=== PATIENT | female | born 1965 | race African-American/Black ===

== ENCOUNTER 2021-08-30 08:31 | Inpatient (IN) | payer OTHER ==
[2021-08-30 09:21] VITALS: BMI 34.0
[2021-08-30] MEDS ORDERED: diazePAM 5 MG TABLET PO PRN (10:15)
[2021-08-30] MEDS ORDERED: BENZOCAINE/MENTHOL (CHLORASEPTIC ) LOZENGE MM PRN (10:15)
[2021-08-30] MEDS ORDERED: DICYCLOMINE HCL 10 MG CAPSULE PO PRN (10:15)
[2021-08-30] MEDS ORDERED: ACETAMINOPHEN 325 MG TABLET (FP) PO PRN ×2 (10:15)
[2021-08-30] MEDS ORDERED: ONDANSETRON *ODT* 4 MG TABLET SL PRN (10:15)
[2021-08-30] MEDS ORDERED: cloNIDine HCL 0.1 MG TABLET PO PRN (10:15)
[2021-08-30] MEDS ORDERED: LOPERAMIDE HCL 2 MG CAPSULE PO PRN (10:15)
[2021-08-30] MEDS ORDERED: methaDONE HCL 10 MG TABLET (FOR DETOX USE ONLY) PO ONE (10:15)
[2021-08-30] MEDS ORDERED: METHOCARBAMOL 500 MG TABLET PO PRN (10:15)
[2021-08-30] MEDS ORDERED: MAGNESIUM CITRATE 300 ML BOTTLE PO PRN (10:15)
[2021-08-30] MEDS ORDERED: IBUPROFEN 400 MG TABLET (FP) PO PRN (10:15)
[2021-08-30] MEDS ORDERED: BISMUTH SUBSALICYLATE 524 MG/30 ML PO PRN (10:15)
[2021-08-30] MEDS ORDERED: MAG HYDROX/AL HYDROX/SIMETH 30 ML UNIT-DOSE CUP PO PRN (10:15)
[2021-08-30] MEDS ORDERED: MAGNESIUM HYDROX 2400MG/30ML ORAL SUSPENSION 30 ML CUP PO PRN (10:15)
[2021-08-30] MEDS ORDERED: cloNIDine HCL 0.1 MG TABLET PO ONE (10:25)
[2021-08-30] MEDS ORDERED: cloNIDine HCL 0.1 MG TABLET ONE (10:57)
[2021-08-30] MEDS ORDERED: methaDONE HCL 10 MG TABLET (FOR DETOX USE ONLY) ONE (10:57)
[2021-08-30] MEDS: diazePAM 5 MG TABLET PO SCH ×3 (11:54→22:36)
[2021-08-30] MEDS: hydrOXYzine PAMOATE 25 MG CAPSULE (FP) PO SCH ×3 (14:14→22:37)
[2021-08-30] MEDS: THIAMINE HCL 100 MG TABLET (FP) PO SCH (22:37)
[2021-08-30] MEDS: MELATONIN 5 MG TABLETS PO SCH (22:37)
[2021-08-31] MEDS: hydrOXYzine PAMOATE 25 MG CAPSULE (FP) PO SCH ×5 (06:17→22:23)
[2021-08-31] MEDS: diazePAM 5 MG TABLET PO SCH ×4 (06:17→22:23)
[2021-08-31] MEDS ORDERED: methaDONE HCL 10 MG TABLET (FOR DETOX USE ONLY) ONE (08:59)
[2021-08-31 09:49] LABS: HEMATOCRIT 35.4 % (32.4-45.2); HEMOGLOBIN 11.9 GM/dL (10.7-15.3); MCH 27.1 pg (25.7-33.7); MCHC 33.7 g/dl (32.0-36.0); MEAN CELL VOLUME 80.5 fl (80-96); MEAN PLT VOLUME 9.6 fl (7.5-11.1); PLATELET COUNT 204 10^3/uL (134-434); RDW 13.8 % (11.6-15.6)
[2021-08-31 09:52] LABS: EPI CELLS >36 /uL (0-25.1); HYALINE CASTS 6 /uL (0-3.1); PH,URINE 5.5 (5.0-8.0); URINE APPEARANCE CLOUDY; URINE BACTERIA 1238 /uL (0-1359); URINE BILIRUBIN NEGATIVE (NEGATIVE); URINE COLOR YELLOW; URINE GLUCOSE (UA) NEGATIVE (NEGATIVE); URINE KETONE TRACE (NEGATIVE); URINE LEUK ESTERASE 1+ (NEGATIVE); URINE NITRITE NEGATIVE (NEGATIVE); URINE PROTEIN NEGATIVE (NEGATIVE); URINE RBC 25 /uL (0-23.9); URINE WBC 122 /uL (0-25.8)
[2021-08-31 09:57] LABS: CALCIUM 8.7 mg/dL (8.5-10.1)
[2021-08-31 09:58] LABS: ALBUMIN 3.5 g/dl (3.4-5.0); BLOOD UREA NITROGEN 13.8 mg/dL (7-18)
[2021-08-31 10:01] LABS: CREATININE 0.7 mg/dL (0.55-1.3)
[2021-08-31 10:03] LABS: TOT PROT 6.6 g/dl (6.4-8.2)
[2021-08-31 10:04] LABS: BILIRUBIN,TOTAL 0.3 mg/dL (0.2-1)
[2021-08-31] MEDS: PRENATAL VITAMINS W/ FOLIC ACID TABLET (FP) PO SCH (10:11)
[2021-08-31 10:28] LABS: SICKLE CELL SCREEN NEGATIVE (NEGATIVE)
[2021-08-31 10:47] LABS: HIV INTERPRETATION NEGATIVE (NEGATIVE)
[2021-08-31] MEDS: NICOTINE 10 MG CARTRIDGE (INHALER) IH PRN (11:38)
[2021-08-31] MEDS: MELATONIN 5 MG TABLETS PO SCH (22:23)
[2021-08-31] MEDS: THIAMINE HCL 100 MG TABLET (FP) PO SCH (22:23)
[2021-09-01] MEDS: diazePAM 5 MG TABLET PO SCH ×3 (06:09→22:29)
[2021-09-01] MEDS: hydrOXYzine PAMOATE 25 MG CAPSULE (FP) PO SCH ×5 (06:09→22:28)
[2021-09-01] MEDS ORDERED: methaDONE HCL 10 MG TABLET (FOR DETOX USE ONLY) PO ONE (10:00)
[2021-09-01] MEDS: PRENATAL VITAMINS W/ FOLIC ACID TABLET (FP) PO SCH (10:06)
[2021-09-01 14:08] LABS: SARS-CoV-2 NAA Not Detected (Not Detected)
[2021-09-01] MEDS: MELATONIN 5 MG TABLETS PO SCH (22:28)
[2021-09-01] MEDS: THIAMINE HCL 100 MG TABLET (FP) PO SCH (22:29)
[2021-09-02] MEDS: hydrOXYzine PAMOATE 25 MG CAPSULE (FP) PO SCH ×5 (05:49→22:22)
[2021-09-02] MEDS: diazePAM 5 MG TABLET PO SCH ×2 (05:49→18:00)
[2021-09-02] MEDS ORDERED: methaDONE HCL 10 MG TABLET (FOR DETOX USE ONLY) ONE (09:42)
[2021-09-02] MEDS: PRENATAL VITAMINS W/ FOLIC ACID TABLET (FP) PO SCH (10:16)
[2021-09-02] MEDS: cloNIDine HCL 0.1 MG TABLET PO SCH ×2 (10:16→22:22)
[2021-09-02] MEDS: THIAMINE HCL 100 MG TABLET (FP) PO SCH (22:22)
[2021-09-02] MEDS: MELATONIN 5 MG TABLETS PO SCH (22:22)
[2021-09-03] MEDS ORDERED: diazePAM 5 MG TABLET PO ONE (06:00)
[2021-09-03] MEDS: hydrOXYzine PAMOATE 25 MG CAPSULE (FP) PO SCH ×5 (06:26→22:29)
[2021-09-03] MEDS ORDERED: methaDONE HCL 10 MG TABLET (FOR DETOX USE ONLY) PO ONE (10:00)
[2021-09-03] MEDS: PRENATAL VITAMINS W/ FOLIC ACID TABLET (FP) PO SCH (10:13)
[2021-09-03] MEDS: cloNIDine HCL 0.1 MG TABLET PO SCH ×2 (10:13→22:29)
[2021-09-03] MEDS: NICOTINE 10 MG CARTRIDGE (INHALER) IH PRN (18:34)
[2021-09-03] MEDS: THIAMINE HCL 100 MG TABLET (FP) PO SCH (22:29)
[2021-09-03] MEDS: MELATONIN 5 MG TABLETS PO SCH (22:29)
[2021-09-04] MEDS: hydrOXYzine PAMOATE 25 MG CAPSULE (FP) PO SCH (05:45)
[2021-09-04 06:18] VITALS: TEMP 97.3
[2021-09-04 08:44] VITALS: BP 168/98; PULSE 66
== END 2021-09-04 09:34 | disposition home or self-care (01) | DRG 773 ==
LOC: YASAS 08:31 → Y3N 10:19
PROVIDERS: ADMIT Allergy & Immunology; ATTEND Allergy & Immunology
PROC: HZ2ZZZZ Detoxification Services for Substance Abuse Treatment (ICD-10-PCS; principal; 2021-08-30)
DX: F11.23 Opioid dependence with withdrawal (principal); F10.10 Alcohol abuse, uncomplicated; F17.210 Nicotine dependence, cigarettes, uncomplicated; F19.24 Other psychoactive substance dependence with psychoactive substance-induced mood disorder; F32.A Depression, unspecified; M54.50 Low back pain, unspecified; G89.29 Other chronic pain; E66.9 Obesity, unspecified; Z68.34 Body mass index [BMI] 34.0-34.9, adult; Z89.022 Acquired absence of left finger(s); Z86.11 Personal history of tuberculosis
CPT/HCPCS: 36415; 80053; 81003; 85027; 85660; 86780; 87086; 87389; 87811; 93005; 93010; C9803-CS; J0735; U0003; U0005